=== PATIENT | male | born 1980 | race Caucasian/White ===

== ENCOUNTER 2020-09-04 23:55 | Emergency (ER) | payer SELFPAY ==
[2020-09-04 23:56] VITALS: BP 134/80; PULSE 89; RESP 16; TEMP 36.2; O2SAT 100; BMI 23.0
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
[2020-09-05] MEDS: HYDROcodone Bitartrate/Apap 5/325 Tablet PO (00:32)
[2020-09-05] MEDS: Naproxen 500 MG Tablet PO (00:32)
[2020-09-05 03:00] VITALS: RESP 16; RESP 18
[2020-09-05 03:56] VITALS: BP 126/90; PULSE 75; RESP 18; O2SAT 96
== END 2020-09-05 03:57 | disposition home or self-care (01) ==
PROVIDERS: Emergency Provider Emergency Medicine
DX: S30.22XA Contusion of scrotum and testes, initial encounter (principal); F17.200 Nicotine dependence, unspecified, uncomplicated; W21.89XA Striking against or struck by other sports equipment, initial encounter; Y93.55 Activity, bike riding; Y92.89 Other specified places as the place of occurrence of the external cause; Y99.8 Other external cause status
CPT/HCPCS: 76870; 93976; 99283

== ENCOUNTER 2022-04-25 00:13 | Emergency (ER) | payer SELFPAY ==
[2022-04-25 00:20] VITALS: BP 145/99; PULSE 69; RESP 18; TEMP 36.6; O2SAT 97; BMI 21.6
--- NOTE | 2022-04-25 00:57 | EX.ED.VIS.PS ---
HPI HPI - Psych History of Present Illness Chief Complaint: Suicidal Informant: patient Narrative Narrative: Patient's been having some suicidal thoughts. These have been getting worse for the last week or so. He had thoughts of cutting his neck. He has not actually acted upon anything. No thoughts of overdosing. He has been on 2 meds for depression for the last month and a half. He states 1 is an antihistamine so is likely hydroxyzine. I have risperidone also listed as a med. He is not sure the names. He is not sure if these are really helping. He has had depression off and on in the past but generally is not seeing anyone for this. He had a prior hospitalization somewhere in [place] about 12 years ago. He states he has been more depressed because he is having issues with his girlfriend/baby mother. He does have family in the area but he states that really not in his life. He feels that he really has nobody and no reason to live anymore. The reason the patient came in today is that he told staff at the [facility] that he had thoughts of hurting him so they called EMS that brought him in. [facility] Medical History Anxiety Depression Home Medications amoxicillin 500 mg capsule 500 mg PO TID 04/25/22 [History Last Taken Unknown] risperidone 2 mg tablet 2 mg PO DAILY 04/25/22 [History Last Taken Unknown] Allergy/AdvReac Type Severity Reaction Status Date / Time No Known Allergies Allergy Verified 04/25/22 00:14 Surgical History no surgical history Social History Smoking Status: Current every day smoker tobacco type: cigarettes ROS ROS ED Constitutional Constitutional ED: Denies chills or fever(s) ENT ENT ED: Denies rhinorrhea or sore throat Cardiovascular Cardiovascular: Denies chest pain Respiratory/Chest Respiratory/Chest: Denies cough or dyspnea Gastrointestinal Gastrointestinal: Denies abdominal pain, nausea or vomiting Musculoskeletal Musculoskeletal: Denies myalgias Integumentary Denies abscess Neurologic Neurologic: Denies headache(s) Psychiatric Psychiatric: Reports depression and suicidal ideation Endocrine Endocrinology: Denies polydipsia or polyuria Allergic/Immunologic Allergic/Immunologic ED: Denies urticaria EXAM Physical Exam Const Vital Signs: 04/25/22 00:20 Temperature 97.8 F Temperature Source Temporal Pulse Rate 69 Respiratory Rate 18 Blood Pressure 145/99 H Blood Pressure Mean 114 Pulse Ox 97 Oxygen Delivery Method Room Air Positive well nourished and well developed General Appearance ED: well developed HEENT Negative for trauma Eyes EOMs intact bilaterally Neck no JVD Resp normal respiratory effort and clear to auscultation bilaterally Cardio no murmurs Rate: regular rate Rhythm: regular rhythm GI non-tender and non-distended Extremity normal to inspection General Extremety ED: Negative for tenderness Neuro oriented x3 Psych Psych Narrative: Mildly flat affect. Patient is not tearful. No paranoia. No flight of ideas. He is cooperative. Skin Rashes: no rashes MDM MDM MDM Narrative Medical decision making narrative: Patient was seen at the end of my shift. We have initiated the work-up. He is pending crisis evaluation will be turned over to the oncoming physician. Discharge Plan Triage Chief Complaint: Suicidal ED Provider: Kwan Lee Dx/Rx/DC Orders Clinical Impression: Suicidal thoughts Prescriptions: No Action amoxicillin 500 mg Capsule 500 mg PO TID risperidone 2 mg Tablet 2 mg PO DAILY Primary Care Provider: Care Physician,No Primary Referrals: Care Physician,No Primary [Primary Care Provider] -
[2022-04-25 01:34] LABS: Absolute Lymphocyte Count 2.03 X10^3/uL (0.83-4.51); Absolute Neutrophil Count 4.4 X10^3/uL (2.0-7.7); Basophil# 0.03 X10^3/uL; Basophil% 0.4 % (0-1); Eosinophil# 0.13 X10^3/uL; Eosinophils% 1.8 % (0-5); Hematocrit 43.5 % (40-54); Hemoglobin 14.9 g/dL (13.0-16.5); Lymphocyte # 2.03 X10^3/ul (0.83-4.51); Lymphocyte % 28.2 % (19-41); Mean Corp Hgb Conc 34.3 g/dL (32-36); Mean Corpuscular Hgb 30.5 pg (27.0-32.0); Mean Platelet Vol. 9.2 fl (6.2-12.0); Monocyte# 0.53 X10^3/uL; Monocyte% 7.4 % (0-10); NRBC Flagged by Analyzer 0 % (0-5); Neutrophil # 4.43 X10^3/uL (2.7-7.7); Neutrophil % 61.6 % (47-70); Platelet Count 217 K/mm3 (150-450); RBC Distribution Width CV 12.8 % (11.6-14.6); Red Blood Count 4.89 M/mm3 (4.6-6.2); White Blood Count 7.2 K/mm3 (4.4-11.0)
[2022-04-25 01:46] LABS: Anion Gap 7 (5-15); BUN 15 mg/dL (7-18); BUN/Creat Ratio 15.1 RATIO (10-20); Calcium,Total 8.9 mg/dL (8.5-10.1); Chloride 110 mmol/L (98-107); Creatinine, Serum 0.99 mg/dL (0.70-1.30); EST Glomerular Filtration Rate 89 mL/min (>60); Est Glom Filt Rate - Afr Amer 108 mL/min (>60); Estimated Creatinine Clearance 99.61 ml/min; Glucose 87 mg/dL (74-106); Potassium 3.7 mmol/L (3.5-5.1); Sodium Level 142 mmol/L (136-145)
--- NOTE | 2022-04-25 02:06 | NURSING ---
CALLED CRISIS AT [phone]
[2022-04-25 02:15] LABS: Amphetamine Urine VISTA NEGATIVE (<1000 ng/mL); Barbiturate Urine VISTA NEGATIVE (< 200 ng/mL); Benzodiazepine Urine VISTA NEGATIVE (< 200 ng/mL); Cocaine Urine VISTA NEGATIVE (< 300 ng/mL); Ecstacy Urine VISTA NEGATIVE (< 500 ng/mL); Methadone Urine VISTA NEGATIVE (< 300 ng/mL); PCP Urine VISTA NEGATIVE (< 25 ng/mL); THC Urine VISTA POSITIVE (< 50 ng/mL); Vista UDS pH Range 6
--- NOTE | 2022-04-25 02:30 | ED.RN ---
no need for sitter at this time
[2022-04-25 04:00] VITALS: RESP 16
[2022-04-25 05:00] VITALS: RESP 16
[2022-04-25 07:54] VITALS: BP 141/99; PULSE 58; RESP 16; TEMP 36.2; O2SAT 99
== END 2022-04-25 10:24 ==
PROVIDERS: Emergency Provider Emergency Medicine; Visit Provider Emergency Medicine
DX: R45.851 Suicidal ideations (principal); F17.210 Nicotine dependence, cigarettes, uncomplicated; F32.A Depression, unspecified
CPT/HCPCS: 36415; 80048; 80307; 82077; 85025; 87811; 99284